=== PATIENT | female | born 1980 | race Hispanic/Latino ===

== ENCOUNTER 2020-10-25 22:17 | Inpatient (IN) | payer OTHER ==
[~2020-10-25] VITALS: Ht 160 cm; Wt 103.2 kg
[2020-10-25] MEDS ORDERED: ALBUTEROL INHALER 90MCG/INH IH ONE (22:33)
[2020-10-25] MEDS ORDERED: ACETAMINOPHEN-CODEINE 300/30MG TAB ONE (22:34)
[2020-10-25 22:41] LABS: BASOPHILS % (AUTO) 0.2 % (0.0-5.0); EOSINOPHILS % (AUTO) 0.3 % (0.0-8.0); HEMATOCRIT 39.2 % (36-48); LYMPHOCYTES % (AUTO) 14.3 % (21.0-51.0); MEAN CORPUSCULAR HEMOGLOBIN 27.6 pg (27.0-33.0); MEAN CORPUSCULAR HGB CONC 32.4 g/dL (32.0-36.0); MEAN CORPUSCULAR VOLUME 85.2 fL (79-99); MONOCYTES % (AUTO) 4.5 % (3.0-13.0); NEUTROPHILS % (AUTO) 80.5 % (40.0-77.0); PLATELET COUNT (AUTO) 134 K/uL (130-400); RED CELL DISTRIBUTION WIDTH 14.6 % (11.0-15.5); WHITE BLOOD COUNT (AUTO) 6.5 K/uL (4.8-10.8)
[2020-10-25 22:53] LABS: RAPID GROUP A STREP NEGATIVE (NEGATIVE)
[2020-10-25 22:54] LABS: CREATININE 1.1 mg/dL (0.5-1.5); POTASSIUM 3.7 mmol/L (3.5-5.1)
[2020-10-25 22:55] LABS: PROTHROMBIN TIME 10.9 SEC (9.6-11.6)
[2020-10-25 22:55] LABS: ABG BASE EXCESS 0.3 mmol/L (-2.0-3.0); ABG HCO3 24.7 mmol/L (21.0-28.0); ABG OXYGEN SATURATION 92.4 % (95.0-99.0); ABG PCO2 39 mmHg (32-45)
[2020-10-25 22:56] LABS: PARTIAL THROMBOPLASTIN TIME 27.9 SEC (26.3-35.5)
[2020-10-25 23:01] LABS: B-TYPE NATRIURETIC PEPTIDE 6 pg/mL (0-100)
[2020-10-25 23:05] LABS: ALBUMIN 3.5 g/dL (3.5-5.0); BILIRUBIN,TOTAL 0.6 mg/dL (0.2-1.0); TOTAL PROTEIN, SERUM 7.5 g/dL (6.0-8.3)
[2020-10-25] MEDS ORDERED: CEFTRIAXONE SODIUM 1 GM ONE (23:23)
[2020-10-25] MEDS ORDERED: AZITHROMYCIN 250 MG TABLET PO ONE (23:24)
[2020-10-26] MEDS ORDERED: ERGOCALCIFEROL (VITAMIN D2) 50,000 UNIT CAPSULE PO ONE
[2020-10-26] MEDS ORDERED: ENOXAPARIN SODIUM 120 MG/0.8ML SQ ONE (00:04)
[2020-10-26] MEDS ORDERED: DEXAMETHASONE SOD PHOSPHATE 4 MG/ML 1ML VIAL IVP SCH (00:15)
[2020-10-26] MEDS ORDERED: LACTATED RINGERS 1000ML 1,000 ML IV SCH (00:15)
[2020-10-26] MEDS ORDERED: ERGOCALCIFEROL (VITAMIN D2) 50,000 UNIT CAPSULE ONE (00:41)
[2020-10-26] MEDS ORDERED: FLUT220HFA IH (03:18)
[2020-10-26] MEDS ORDERED: IBUP-2784 PO (03:19)
[2020-10-26 04:06] LABS: EOSINOPHILS % (AUTO) 0.2 % (0.0-8.0); HEMATOCRIT 35.6 % (36-48); LYMPHOCYTES % (AUTO) 18.9 % (21.0-51.0); MEAN CORPUSCULAR HEMOGLOBIN 27.3 pg (27.0-33.0); MEAN CORPUSCULAR HGB CONC 31.7 g/dL (32.0-36.0); MONOCYTES % (AUTO) 3.7 % (3.0-13.0); PLATELET COUNT (AUTO) 124 K/uL (130-400); RED BLOOD CELL COUNT(AUTO) 4.14 MIL/uL (4.00-5.50); RED CELL DISTRIBUTION WIDTH 14.8 % (11.0-15.5); WHITE BLOOD COUNT (AUTO) 4.9 K/uL (4.8-10.8)
[2020-10-26 04:25] LABS: BILIRUBIN,TOTAL 0.5 mg/dL (0.2-1.0); CRP QUANTITATIVE 57.6 mg/L (0.00-9.0); POTASSIUM 3.6 mmol/L (3.5-5.1); TOTAL PROTEIN, SERUM 6.6 g/dL (6.0-8.3)
[2020-10-26 04:26] VITALS: BP 132/63
[2020-10-26] MEDS ORDERED: LACTATED RINGERS 1000ML 1,000 ML IV ONE (06:14)
[2020-10-26] MEDS: GUAIFENESIN-DM 200/20 MG 10 ML PO PRN ×2 (06:16→21:17)
[2020-10-26 08:36] VITALS: BP 104/65
[2020-10-26] MEDS: ZINC SULFATE 220 CAPSULE PO SCH (08:55)
[2020-10-26] MEDS: ASCORBIC ACID 500 MG TAB PO SCH (08:55)
[2020-10-26] MEDS: ACETYLCYSTEINE 600 MG CAPSULE PO SCH ×2 (08:55→21:16)
[2020-10-26] MEDS: ONDANSETRON HCL 4 MG/2 ML VIAL IVP PRN (12:39)
[2020-10-26 13:15] VITALS: BP 100/61
[2020-10-26 16:00] VITALS: BP 117/69
[2020-10-26] MEDS ORDERED: PHARMACY COMMUNICATION**REMDESIVIR ORDER MISC SCH (18:30)
[2020-10-26] MEDS: PANTOPRAZOLE SODIUM 40 MG TABLET.DR PO SCH (18:54)
[2020-10-26 19:00] VITALS: BP 106/51
[2020-10-26] MEDS ORDERED: COMPOUND IV REFRIGERATED 1 EACH IVSOLN MISC PRN (19:00)
[2020-10-26] MEDS ORDERED: REMDESIVIR (EUA) 520 200 MG in SODIUM CHLORIDE 0.9% 250 ML IV SCH (20:00)
[2020-10-26 20:47] LABS: CREATININE 1.1 mg/dL (0.5-1.5); POTASSIUM 3.7 mmol/L (3.5-5.1)
[2020-10-26 20:51] LABS: ALBUMIN 3.1 g/dL (3.5-5.0); BILIRUBIN,DIRECT 0.1 mg/dL (0.0-0.3); BILIRUBIN,TOTAL 0.5 mg/dL (0.2-1.0); TOTAL PROTEIN, SERUM 6.4 g/dL (6.0-8.3)
[2020-10-26] MEDS: AZITHROMYCIN 500MG+NS 250ML 250 ML IV SCH (21:00)
[2020-10-26] MEDS: CEFTRIAXONE SODIUM 1 GM IV SCH (21:17)
[2020-10-26] MEDS: METHYLPREDNISOLONE SOD SUCC 125MG/2ML VIAL IVP SCH (21:17)
[2020-10-26] MEDS: ENOXAPARIN SODIUM 40 MG/0.4 ML SYRINGE SQ SCH (21:22)
[2020-10-27] VITALS: BP 105/56
[2020-10-27 04:00] VITALS: BP 109/64
[2020-10-27 05:54] LABS: HEMATOCRIT 37.8 % (36-48); LYMPHOCYTES % (AUTO) 10.7 % (21.0-51.0); MEAN CORPUSCULAR HEMOGLOBIN 27.7 pg (27.0-33.0); MEAN CORPUSCULAR HGB CONC 32.3 g/dL (32.0-36.0); MEAN CORPUSCULAR VOLUME 85.7 fL (79-99); MONOCYTES % (AUTO) 1.1 % (3.0-13.0); NEUTROPHILS % (AUTO) 87.9 % (40.0-77.0); PLATELET COUNT (AUTO) 128 K/uL (130-400); RED BLOOD CELL COUNT(AUTO) 4.41 MIL/uL (4.00-5.50); RED CELL DISTRIBUTION WIDTH 14.6 % (11.0-15.5); WHITE BLOOD COUNT (AUTO) 3.6 K/uL (4.8-10.8)
[2020-10-27 06:09] LABS: BILIRUBIN,TOTAL 0.4 mg/dL (0.2-1.0); MAGNESIUM 2.5 mg/dL (1.80-2.40); PHOSPHORUS 2.4 mg/dL (2.5-4.9); POTASSIUM 4.5 mmol/L (3.5-5.1); TOTAL PROTEIN, SERUM 7.2 g/dL (6.0-8.3)
[2020-10-27] MEDS: REMDESIVIR LABS MISC SCH (07:11)
[2020-10-27] MEDS: ONDANSETRON HCL 4 MG/2 ML VIAL IVP PRN ×3 (07:57→22:32)
[2020-10-27] MEDS: METHYLPREDNISOLONE SOD SUCC 125MG/2ML VIAL IVP SCH ×2 (08:02→21:47)
[2020-10-27] MEDS: ENOXAPARIN SODIUM 40 MG/0.4 ML SYRINGE SQ SCH (08:03)
[2020-10-27] MEDS: ZINC SULFATE 220 CAPSULE PO SCH (08:06)
[2020-10-27] MEDS: PANTOPRAZOLE SODIUM 40 MG TABLET.DR PO SCH (08:06)
[2020-10-27] MEDS: ACETYLCYSTEINE 600 MG CAPSULE PO SCH ×2 (08:06→21:54)
[2020-10-27] MEDS: ASCORBIC ACID 500 MG TAB PO SCH (08:06)
[2020-10-27 08:26] VITALS: BP 110/68
[2020-10-27 08:40] LABS: ABG BASE EXCESS -0.3 mmol/L (-2.0-3.0); ABG HCO3 24.4 mmol/L (21.0-28.0); ABG OXYGEN SATURATION 93.4 % (95.0-99.0); ABG PCO2 40 mmHg (32-45)
[2020-10-27 12:58] VITALS: BP 138/87
[2020-10-27] MEDS: ALBUTEROL SULFATE 0.083% 2.5 MG/3 ML INH IH SCH ×3 (14:14→21:54)
[2020-10-27] MEDS: FLUTICASONE/VILANTEROL 1 EACH AER.POW.BA IH SCH (14:20)
[2020-10-27] MEDS: GUAIFENESIN-DM 200/20 MG 10 ML PO PRN ×2 (14:43→21:47)
[2020-10-27 16:14] VITALS: BP 129/80
[2020-10-27 18:53] VITALS: BP 114/63
[2020-10-27] MEDS: REMDESIVIR (EUA) 520 100 MG in SODIUM CHLORIDE 0.9% 250 ML IV SCH (20:10)
[2020-10-27] MEDS: AZITHROMYCIN 500MG+NS 250ML 250 ML IV SCH (21:45)
[2020-10-27] MEDS: CEFTRIAXONE SODIUM 1 GM IV SCH (21:47)
[2020-10-27] MEDS ORDERED: ACETAMINOPHEN 325 MG TAB PO PRN (22:15)
[2020-10-27] MEDS: ACETAMINOPHEN 325 MG TAB PO PRN (22:29)
[2020-10-28 00:15] VITALS: BP 115/78
[2020-10-28] MEDS: ALBUTEROL SULFATE 0.083% 2.5 MG/3 ML INH IH SCH ×5 (02:00→17:04)
[2020-10-28 04:15] VITALS: BP 125/71
[2020-10-28 04:30] LABS: BASOPHILS % (AUTO) 0.1 % (0.0-5.0); HEMATOCRIT 36.5 % (36-48); LYMPHOCYTES % (AUTO) 8.9 % (21.0-51.0); MEAN CORPUSCULAR HEMOGLOBIN 28.1 pg (27.0-33.0); MEAN CORPUSCULAR HGB CONC 32.6 g/dL (32.0-36.0); MEAN CORPUSCULAR VOLUME 86.3 fL (79-99); MONOCYTES % (AUTO) 2.3 % (3.0-13.0); NEUTROPHILS % (AUTO) 86.3 % (40.0-77.0); PLATELET COUNT (AUTO) 147 K/uL (130-400); RED BLOOD CELL COUNT(AUTO) 4.23 MIL/uL (4.00-5.50); RED CELL DISTRIBUTION WIDTH 14.6 % (11.0-15.5); WHITE BLOOD COUNT (AUTO) 7.4 K/uL (4.8-10.8)
[2020-10-28 04:56] LABS: BILIRUBIN,TOTAL 0.4 mg/dL (0.2-1.0); CREATININE 0.9 mg/dL (0.5-1.5); CRP QUANTITATIVE 37.7 mg/L (0.00-9.0); POTASSIUM 4.4 mmol/L (3.5-5.1); TOTAL PROTEIN, SERUM 7.4 g/dL (6.0-8.3)
[2020-10-28 08:19] VITALS: BP 124/74
[2020-10-28] MEDS: ASCORBIC ACID 500 MG TAB PO SCH (08:56)
[2020-10-28] MEDS: ZINC SULFATE 220 CAPSULE PO SCH (08:56)
[2020-10-28] MEDS: ACETYLCYSTEINE 600 MG CAPSULE PO SCH ×2 (08:56→20:47)
[2020-10-28] MEDS: PANTOPRAZOLE SODIUM 40 MG TABLET.DR PO SCH (08:56)
[2020-10-28] MEDS: ENOXAPARIN SODIUM 40 MG/0.4 ML SYRINGE SQ SCH (08:57)
[2020-10-28] MEDS: METHYLPREDNISOLONE SOD SUCC 125MG/2ML VIAL IVP SCH ×3 (08:57→23:22)
[2020-10-28] MEDS: FLUTICASONE/VILANTEROL 1 EACH AER.POW.BA IH SCH (08:58)
[2020-10-28] MEDS: ONDANSETRON HCL 4 MG/2 ML VIAL IVP PRN (11:21)
[2020-10-28 11:36] VITALS: BP 114/72
[2020-10-28] MEDS: REMDESIVIR LABS MISC SCH (12:07)
[2020-10-28 16:02] VITALS: BP 117/74
[2020-10-28] MEDS: GUAIFENESIN-DM 200/20 MG 10 ML PO PRN (18:31)
[2020-10-28 20:00] VITALS: BP 119/62
[2020-10-28] MEDS: CEFTRIAXONE SODIUM 1 GM IV SCH (20:43)
[2020-10-28] MEDS: AZITHROMYCIN 500MG+NS 250ML 250 ML IV SCH (20:45)
[2020-10-28] MEDS: ACETAMINOPHEN 325 MG TAB PO PRN (20:46)
[2020-10-28] MEDS: REMDESIVIR (EUA) 520 100 MG in SODIUM CHLORIDE 0.9% 250 ML IV SCH (23:20)
[2020-10-29] VITALS (7 sets, daily range): BP systolic 117–148; BP diastolic 63–83
[2020-10-29] MEDS: ALBUTEROL SULFATE 0.083% 2.5 MG/3 ML INH IH SCH ×7 (02:00→22:00)
[2020-10-29] MEDS: METHYLPREDNISOLONE SOD SUCC 125MG/2ML VIAL IVP SCH ×2 (05:56→09:00)
[2020-10-29 06:17] LABS: BASOPHILS % (AUTO) 0.2 % (0.0-5.0); HEMATOCRIT 37.4 % (36-48); LYMPHOCYTES % (AUTO) 7.8 % (21.0-51.0); MEAN CORPUSCULAR HEMOGLOBIN 27.5 pg (27.0-33.0); MEAN CORPUSCULAR HGB CONC 31.6 g/dL (32.0-36.0); MEAN CORPUSCULAR VOLUME 87.2 fL (79-99); MONOCYTES % (AUTO) 1.8 % (3.0-13.0); NEUTROPHILS % (AUTO) 88.8 % (40.0-77.0); PLATELET COUNT (AUTO) 157 K/uL (130-400); RED BLOOD CELL COUNT(AUTO) 4.29 MIL/uL (4.00-5.50); RED CELL DISTRIBUTION WIDTH 14.5 % (11.0-15.5); WHITE BLOOD COUNT (AUTO) 9.6 K/uL (4.8-10.8)
[2020-10-29 06:27] LABS: ALBUMIN 2.9 g/dL (3.5-5.0); BILIRUBIN,TOTAL 0.3 mg/dL (0.2-1.0); CREATININE 0.9 mg/dL (0.5-1.5); CRP QUANTITATIVE 12.8 mg/L (0.00-9.0); POTASSIUM 4.5 mmol/L (3.5-5.1); TOTAL PROTEIN, SERUM 6.5 g/dL (6.0-8.3)
[2020-10-29] MEDS ORDERED: METHYLPREDNISOLONE SOD SUCC 125MG/2ML VIAL IVP SCH (08:30)
[2020-10-29 08:45] LABS: HEMOGLOBIN A1C 6.1 % (4.0-6.0)
[2020-10-29] MEDS: PANTOPRAZOLE SODIUM 40 MG TABLET.DR PO SCH (09:06)
[2020-10-29] MEDS: ASCORBIC ACID 500 MG TAB PO SCH (09:06)
[2020-10-29] MEDS: ZINC SULFATE 220 CAPSULE PO SCH (09:06)
[2020-10-29] MEDS: ENOXAPARIN SODIUM 40 MG/0.4 ML SYRINGE SQ SCH (09:07)
[2020-10-29] MEDS: REMDESIVIR LABS MISC SCH (09:08)
[2020-10-29] MEDS: ACETAMINOPHEN 325 MG TAB PO PRN ×2 (09:09→13:33)
[2020-10-29] MEDS: ACETYLCYSTEINE 600 MG CAPSULE PO SCH ×2 (09:10→20:18)
[2020-10-29] MEDS: FLUTICASONE/VILANTEROL 1 EACH AER.POW.BA IH SCH (09:10)
[2020-10-29] MEDS: METHYLPREDNISOLONE SOD SUCC 40MG/ML 1ML IVP SCH (17:01)
[2020-10-29] MEDS ORDERED: SODIUM CHLORIDE 0.9% 100 ML IV ONE (20:10)
[2020-10-29] MEDS: REMDESIVIR (EUA) 520 100 MG in SODIUM CHLORIDE 0.9% 250 ML IV SCH (20:17)
[2020-10-29] MEDS: AZITHROMYCIN 500MG+NS 250ML 250 ML IV SCH (20:18)
[2020-10-29] MEDS: CEFTRIAXONE SODIUM 1 GM IV SCH (20:18)
[2020-10-29 21:54] LABS: APPEARANCE,URINE CLOUDY (CLEAR); BILIRUBIN,URINE NEGATIVE (NEGATIVE); GLUCOSE, URINE (UA) 500 mg/dL (NEGATIVE); KETONES,URINE 5 mg/dL (NEGATIVE); LEUKOCYTE ESTERASE ,URINE NEGATIVE (NEGATIVE); NITRATE,URINE NEGATIVE (NEGATIVE); OCCULT BLOOD,URINE LARGE (NEGATIVE); PH,URINE 6.5 (5.0-8.0); PROTEIN,URINE NEGATIVE (NEGATIVE); UROBILINOGEN,URINE 0.2 mg/dL (0.2-1.0)
[2020-10-29 21:55] LABS: COLOR,URINE ORANGE (YELLOW)
[2020-10-29 22:15] LABS: BACTERIA,URINE Rare /HPF (None Seen); RBC,URINE >100 /HPF (0-1); WBC,URINE 0-1 /HPF (0-1)
[2020-10-29 22:16] LABS: SQUAMOUS EPITHELIAL CELL,UR None Seen /HPF (0-2)
[2020-10-30] MEDS: METHYLPREDNISOLONE SOD SUCC 40MG/ML 1ML IVP SCH ×3 (00:46→17:00)
[2020-10-30] MEDS: ALBUTEROL SULFATE 0.083% 2.5 MG/3 ML INH IH SCH ×6 (02:23→22:00)
[2020-10-30 04:10] VITALS: BP 118/82
[2020-10-30] MEDS: GUAIFENESIN-DM 200/20 MG 10 ML PO PRN ×2 (05:44→19:52)
[2020-10-30] MEDS: LACTULOSE 20 GM/30 ML UDCUP PO PRN (05:44)
[2020-10-30 05:49] LABS: BASOPHILS % (AUTO) 0.4 % (0.0-5.0); EOSINOPHILS % (AUTO) 0.1 % (0.0-8.0); HEMATOCRIT 36.3 % (36-48); LYMPHOCYTES % (AUTO) 8.8 % (21.0-51.0); MEAN CORPUSCULAR HGB CONC 33.1 g/dL (32.0-36.0); MEAN CORPUSCULAR VOLUME 84.8 fL (79-99); MONOCYTES % (AUTO) 4.3 % (3.0-13.0); NEUTROPHILS % (AUTO) 81.7 % (40.0-77.0); PLATELET COUNT (AUTO) 147 K/uL (130-400); RED BLOOD CELL COUNT(AUTO) 4.28 MIL/uL (4.00-5.50); WHITE BLOOD COUNT (AUTO) 10.1 K/uL (4.8-10.8)
[2020-10-30] MEDS: REMDESIVIR LABS MISC SCH (06:00)
[2020-10-30] MEDS ORDERED: IOHEXOL 350 MG/ML 100ML INFUS..BTL IV ONE (06:39)
[2020-10-30 06:40] LABS: ALBUMIN 2.9 g/dL (3.5-5.0); BILIRUBIN,DIRECT 0.1 mg/dL (0.0-0.3); BILIRUBIN,TOTAL 0.3 mg/dL (0.2-1.0); CREATININE 0.9 mg/dL (0.5-1.5); TOTAL PROTEIN, SERUM 6.9 g/dL (6.0-8.3)
[2020-10-30 06:52] LABS: CREATININE 0.9 mg/dL (0.5-1.5); CRP QUANTITATIVE 6.7 mg/L (0.00-9.0); POTASSIUM 4.2 mmol/L (3.5-5.1)
[2020-10-30 08:12] VITALS: BP 140/80
[2020-10-30] MEDS: PANTOPRAZOLE SODIUM 40 MG TABLET.DR PO SCH (08:40)
[2020-10-30] MEDS: ACETYLCYSTEINE 600 MG CAPSULE PO SCH ×2 (08:40→19:52)
[2020-10-30] MEDS: ZINC SULFATE 220 CAPSULE PO SCH (08:40)
[2020-10-30] MEDS: ASCORBIC ACID 500 MG TAB PO SCH (08:40)
[2020-10-30] MEDS: FLUTICASONE/VILANTEROL 1 EACH AER.POW.BA IH SCH (08:43)
[2020-10-30 12:23] VITALS: BP 118/75
[2020-10-30 16:16] VITALS: BP 121/68
[2020-10-30] MEDS: AZITHROMYCIN 500MG+NS 250ML 250 ML IV SCH (19:52)
[2020-10-30] MEDS: REMDESIVIR (EUA) 520 100 MG in SODIUM CHLORIDE 0.9% 250 ML IV SCH (19:52)
[2020-10-30] MEDS: CEFTRIAXONE SODIUM 1 GM IV SCH (19:53)
[2020-10-30 20:16] VITALS: BP 131/74
[2020-10-30 23:56] VITALS: BP 129/73
[2020-10-31] MEDS: METHYLPREDNISOLONE SOD SUCC 40MG/ML 1ML IVP SCH ×3 (00:30→15:39)
[2020-10-31] MEDS: ALBUTEROL SULFATE 0.083% 2.5 MG/3 ML INH IH SCH ×6 (02:05→21:39)
[2020-10-31 04:16] VITALS: BP 144/76
[2020-10-31 05:04] LABS: BASOPHILS % (AUTO) 0.6 % (0.0-5.0); HEMATOCRIT 36.4 % (36-48); LYMPHOCYTES % (AUTO) 10.6 % (21.0-51.0); MEAN CORPUSCULAR HGB CONC 32.4 g/dL (32.0-36.0); MEAN CORPUSCULAR VOLUME 83.3 fL (79-99); MONOCYTES % (AUTO) 4.8 % (3.0-13.0); NEUTROPHILS % (AUTO) 75.7 % (40.0-77.0); NUCLEATED RED BLOOD CELLS 0.4 % (0.0-0.19); PLATELET COUNT (AUTO) 131 K/uL (130-400); RED BLOOD CELL COUNT(AUTO) 4.37 MIL/uL (4.00-5.50); RED CELL DISTRIBUTION WIDTH 13.8 % (11.0-15.5); WHITE BLOOD COUNT (AUTO) 9.4 K/uL (4.8-10.8)
[2020-10-31 05:30] LABS: CARBON DIOXIDE 26 mmol/L (21-32); CHLORIDE 104 mmol/L (101-111); CREATININE 0.9 mg/dL (0.5-1.5); GLOMERULAR FILTR. RATE CALC 73 mL/min (>60); GLUCOSE,RANDOM 166 mg/dL (70-105); LACTATE DEHYDROGENASE 260 U/L (81-234); POTASSIUM 4.3 mmol/L (3.5-5.1); SODIUM SERUM 138 mmol/L (136-145); UREA NITROGEN, BLOOD 19 mg/dL (7-18)
[2020-10-31] MEDS: GUAIFENESIN-DM 200/20 MG 10 ML PO PRN (05:41)
[2020-10-31] MEDS: LACTULOSE 20 GM/30 ML UDCUP PO PRN (05:41)
[2020-10-31] MEDS: REMDESIVIR LABS MISC SCH (06:00)
[2020-10-31 06:04] LABS: CRP QUANTITATIVE < 2.00 mg/L (0.00-9.0)
[2020-10-31 08:00] VITALS: BP 132/72
[2020-10-31] MEDS: ACETYLCYSTEINE 600 MG CAPSULE PO SCH ×2 (10:08→21:38)
[2020-10-31] MEDS: ASCORBIC ACID 500 MG TAB PO SCH (10:08)
[2020-10-31] MEDS: ZINC SULFATE 220 CAPSULE PO SCH (10:08)
[2020-10-31] MEDS: PANTOPRAZOLE SODIUM 40 MG TABLET.DR PO SCH (10:08)
[2020-10-31] MEDS: FLUTICASONE/VILANTEROL 1 EACH AER.POW.BA IH SCH (10:09)
[2020-10-31] MEDS ORDERED: FLUT1AER IH (11:02)
[2020-10-31] MEDS ORDERED: PRED10TA3 PO (11:02)
[2020-10-31] MEDS ORDERED: ALBU8.5H8 IH (11:02)
[2020-10-31 14:04] VITALS: BP 142/87
[2020-10-31] MEDS ORDERED: SODIUM CHLORIDE 0.9% 500ML 500 ML IV ONE (21:07)
[2020-10-31 21:10] VITALS: BP 131/77
[2020-10-31] MEDS: CEFTRIAXONE SODIUM 1 GM IV SCH (21:38)
[2020-10-31] MEDS: AZITHROMYCIN 500MG+NS 250ML 250 ML IV SCH (21:38)
[2020-11-01] MEDS: METHYLPREDNISOLONE SOD SUCC 40MG/ML 1ML IVP SCH ×2 (00:30→08:04)
[2020-11-01 00:34] VITALS: BP 132/79
[2020-11-01 04:48] VITALS: BP 153/82
[2020-11-01 04:56] LABS: BASOPHILS % (AUTO) 0.8 % (0.0-5.0); HEMATOCRIT 38.8 % (36-48); LYMPHOCYTES % (AUTO) 10.3 % (21.0-51.0); MEAN CORPUSCULAR HEMOGLOBIN 27.4 pg (27.0-33.0); MEAN CORPUSCULAR HGB CONC 32.7 g/dL (32.0-36.0); MEAN CORPUSCULAR VOLUME 83.6 fL (79-99); MONOCYTES % (AUTO) 6.6 % (3.0-13.0); NEUTROPHILS % (AUTO) 72.6 % (40.0-77.0); NUCLEATED RED BLOOD CELLS 0.3 % (0.0-0.19); PLATELET COUNT (AUTO) 134 K/uL (130-400); RED BLOOD CELL COUNT(AUTO) 4.64 MIL/uL (4.00-5.50); WHITE BLOOD COUNT (AUTO) 11.8 K/uL (4.8-10.8)
[2020-11-01 05:23] LABS: CREATININE 0.9 mg/dL (0.5-1.5); POTASSIUM 4.2 mmol/L (3.5-5.1)
[2020-11-01] MEDS: ZINC SULFATE 220 CAPSULE PO SCH (08:04)
[2020-11-01] MEDS: ACETYLCYSTEINE 600 MG CAPSULE PO SCH (08:04)
[2020-11-01] MEDS: PANTOPRAZOLE SODIUM 40 MG TABLET.DR PO SCH (08:04)
[2020-11-01] MEDS: ASCORBIC ACID 500 MG TAB PO SCH (08:04)
[2020-11-01] MEDS: FLUTICASONE/VILANTEROL 1 EACH AER.POW.BA IH SCH (08:05)
[2020-11-01 08:15] VITALS: BP 123/68
== END 2020-11-01 16:04 | disposition home or self-care (01) | DRG 177 ==
LOC: EDH 22:17 → EDHIP 22:18 → OBSVTOIN 22:18 → INTOOBSV 22:18 → 4AH 10-26 02:42 → 2AH 10-27 18:32
PROVIDERS: ADMIT Family Medicine; ATTEND Family Medicine
PROC: XW033E5 Introduction of Remdesivir Anti-infective into Peripheral Vein, Percutaneous Approach, New Technology Group 5 (ICD-10-PCS; principal; 2020-10-26)
PROC: XW13325 Transfusion of Convalescent Plasma (Nonautologous) into Peripheral Vein, Percutaneous Approach, New Technology Group 5 (ICD-10-PCS; 2020-10-27)
DX: U07.1 COVID-19 (principal); J96.01 Acute respiratory failure with hypoxia; J12.82 Pneumonia due to coronavirus disease 2019; Z68.41 Body mass index [BMI] 40.0-44.9, adult; J45.901 Unspecified asthma with (acute) exacerbation; J44.0 Chronic obstructive pulmonary disease with (acute) lower respiratory infection; K92.2 Gastrointestinal hemorrhage, unspecified; R31.9 Hematuria, unspecified; E66.01 Morbid (severe) obesity due to excess calories; N85.2 Hypertrophy of uterus; N92.0 Excessive and frequent menstruation with regular cycle; K76.0 Fatty (change of) liver, not elsewhere classified; R16.1 Splenomegaly, not elsewhere classified; R79.89 Other specified abnormal findings of blood chemistry; Z87.442 Personal history of urinary calculi
CPT/HCPCS: 36415; 36430; 36600; 71045; 71250; 74176; 74177; 80048; 80053; 80076; 81001; 82550; 82565; 82728; 82803; 83036; 83605; 83615; 83735; 83880; 84100; 84145; 84484; 84702; 85025; 85378; 85610; 85730; 86140; 86850; 86900; 86901; 86927; 87040; 87426; 87804; 87880; 93005; 94760; 99291; G0378; J0456; J0696; J1650; J2405; J2920; J2930; J7040; J7050; J7120; Q9967

== ENCOUNTER 2020-12-04 15:08 | Emergency (ER) | payer OTHER ==
[~2020-12-04 15:08] MED LIST: ALBU8.5H8 IH; FLUT1AER IH; PRED10TA3 PO
[2020-12-04 17:15] LABS: RAPID GROUP A STREP NEGATIVE (NEGATIVE)
== END 2020-12-04 17:28 | disposition home or self-care (01) ==
LOC: EDH 15:08
DX: J30.9 Allergic rhinitis, unspecified (principal); E11.9 Type 2 diabetes mellitus without complications; Z88.8 Allergy status to other drugs, medicaments and biological substances; Z87.442 Personal history of urinary calculi
CPT/HCPCS: 36415; 71045; 81025; 84702; 87804; 87880

== ENCOUNTER 2020-12-11 18:08 | Emergency (ER) | payer SELFPAY ==
[2020-12-11 19:05] LABS: BASOPHILS % (AUTO) 0.6 % (0.0-5.0); EOSINOPHILS % (AUTO) 3.6 % (0.0-8.0); HEMATOCRIT 38.8 % (36-48); MEAN CORPUSCULAR HEMOGLOBIN 28.4 pg (27.0-33.0); MEAN CORPUSCULAR VOLUME 86.2 fL (79-99); MONOCYTES % (AUTO) 5.3 % (3.0-13.0); NEUTROPHILS % (AUTO) 68.9 % (40.0-77.0); PLATELET COUNT (AUTO) 167 K/uL (130-400); RED CELL DISTRIBUTION WIDTH 15.9 % (11.0-15.5); WHITE BLOOD COUNT (AUTO) 9.1 K/uL (4.8-10.8)
[2020-12-11 19:13] LABS: CREATININE 1.8 mg/dL (0.5-1.5); POTASSIUM 4.6 mmol/L (3.5-5.1)
[2020-12-11 19:17] LABS: ALBUMIN 3.7 g/dL (3.5-5.0); BILIRUBIN,TOTAL 0.6 mg/dL (0.2-1.0); TOTAL PROTEIN, SERUM 7.4 g/dL (6.0-8.3)
[2020-12-11] MEDS ORDERED: ONDANSETRON 4MG INJ ONE (19:19)
[2020-12-11] MEDS ORDERED: MORPHINE 4 MG SYG ONE (19:19)
[2020-12-11] MEDS ORDERED: IOHEXOL-350 75 ML VIAL IV ONE (19:19)
[2020-12-11] MEDS ORDERED: 0.9%NACL 1000ML 1,000 ML IV ONE (19:20)
[2020-12-11 19:38] LABS: APPEARANCE,URINE Clear (CLEAR); BILIRUBIN,URINE Negative (NEGATIVE); COLOR,URINE Yellow (YELLOW); GLUCOSE, URINE (UA) Negative (NEGATIVE); KETONES,URINE Negative (NEGATIVE); LEUKOCYTE ESTERASE ,URINE Negative (NEGATIVE); NITRATE,URINE Negative (NEGATIVE); OCCULT BLOOD,URINE Negative (NEGATIVE); PH,URINE 5.5 (5.0-8.0); PROTEIN,URINE Negative (NEGATIVE); UROBILINOGEN,URINE 0.2 mg/dL (0.2-1.0)
[2020-12-11 19:41] LABS: HCG,QUAL RESULT NEGATIVE (NEGATIVE)
[2020-12-11] MEDS ORDERED: MAG/ALUM/SIMETH 30 ML UDCUP ONE (20:40)
[2020-12-11] MEDS ORDERED: LIDOCAINE HCL 2% VISCOUS 15 ML UDCUP ONE (20:40)
[2020-12-11] MEDS ORDERED: KETOROLAC 30MG VIAL (30MG/ML) ONE (22:13)
== END 2020-12-11 23:30 | disposition home or self-care (01) ==
LOC: EDH 18:08
DX: R10.84 Generalized abdominal pain (principal); J45.909 Unspecified asthma, uncomplicated; E11.9 Type 2 diabetes mellitus without complications; Z88.6 Allergy status to analgesic agent; Z87.442 Personal history of urinary calculi
CPT/HCPCS: 36415; 74176; 76705; 76856; 80053; 81003; 81025; 83690; 84702; 85025; 96361; 96374; 96375; 99285; J1885; J2270; J2405; J7030; Q9967

== ENCOUNTER → 2022-06-04 | Outpatient (CLI) | payer MEDICAID | END | disposition home or self-care (01) | LOC: RAH 12:17 | PROVIDERS: ATTEND Physical Medicine & Rehabilitation | DX: M47.22 Other spondylosis with radiculopathy, cervical region (principal); M48.02 Spinal stenosis, cervical region; M47.816 Spondylosis without myelopathy or radiculopathy, lumbar region; M48.061 Spinal stenosis, lumbar region without neurogenic claudication; Z88.8 Allergy status to other drugs, medicaments and biological substances | CPT/HCPCS: 72141; 72148 ==

== ENCOUNTER 2022-07-31 19:01 | Emergency (ER) | payer MEDICAID ==
[~2022-07-31] VITALS: Ht 160 cm; Wt 133.8 kg
[2022-07-31 20:00] LABS: BASOPHILS % (AUTO) 0.4 % (0.0-5.0); EOSINOPHILS % (AUTO) 2.2 % (0.0-8.0); LYMPHOCYTES % (AUTO) 26.9 % (21.0-51.0); MEAN CORPUSCULAR HEMOGLOBIN 28.7 pg (27.0-33.0); MEAN CORPUSCULAR HGB CONC 33.1 g/dL (32.0-36.0); MEAN CORPUSCULAR VOLUME 86.7 fL (79-99); MONOCYTES % (AUTO) 6.5 % (3.0-13.0); NEUTROPHILS % (AUTO) 63.7 % (40.0-77.0); PLATELET COUNT (AUTO) 180 K/uL (130-400); RED BLOOD CELL COUNT(AUTO) 4.15 MIL/uL (4.00-5.50); RED CELL DISTRIBUTION WIDTH 15.2 % (11.0-15.5); WHITE BLOOD COUNT (AUTO) 7.7 K/uL (4.8-10.8)
[2022-07-31 20:12] LABS: CREATININE 1.1 mg/dL (0.5-1.5); POTASSIUM 4.3 mmol/L (3.5-5.1)
[2022-07-31 20:16] LABS: ALBUMIN 3.2 g/dL (3.5-5.0); TOTAL PROTEIN, SERUM 6.8 g/dL (6.0-8.3)
[2022-07-31 20:19] LABS: APPEARANCE,URINE CLEAR (CLEAR); BILIRUBIN,URINE NEGATIVE (NEGATIVE); COLOR,URINE LIGHT-YELLOW (YELLOW); GLUCOSE, URINE (UA) NEGATIVE (NEGATIVE); KETONES,URINE NEGATIVE (NEGATIVE); LEUKOCYTE ESTERASE ,URINE NEGATIVE Leu/uL (NEGATIVE); NITRATE,URINE NEGATIVE (NEGATIVE); OCCULT BLOOD,URINE LARGE (NEGATIVE); PH,URINE 5.5 (5.0-8.0); PROTEIN,URINE NEGATIVE (NEGATIVE); UROBILINOGEN,URINE 0.2 mg/dL (0.2-1.0)
[2022-07-31 20:32] LABS: BACTERIA,URINE Rare /HPF (None Seen); RBC,URINE None Seen /HPF (0-1); SQUAMOUS EPITHELIAL CELL,UR 0-2 /HPF (0-2); WBC,URINE 0-1 /HPF (0-1)
[2022-07-31 20:40] LABS: INR 0.93 (0.85-1.15); PROTHROMBIN TIME 10.2 SEC (9.6-11.6)
[2022-07-31 20:42] LABS: PARTIAL THROMBOPLASTIN TIME 24.9 SEC (26.3-35.5)
[2022-07-31] MEDS ORDERED: 0.9%NACL 1000ML 2,000 ML IV ONE (21:30)
[2022-07-31] MEDS ORDERED: CYCL-309 PO (23:23)
[2022-07-31] MEDS ORDERED: GABA300C PO (23:23)
[2022-07-31 23:26] VITALS: BP 121/69
[2022-07-31] MEDS ORDERED: ACETAMINOPHEN 500 MG TABLET PO ONE (23:30)
[2022-08-01] MEDS ORDERED: [UNRECOGNIZED DRUG - OTHER] (00:14)
== END 2022-08-01 00:24 | disposition home or self-care (01) ==
LOC: EDH 19:01
DX: D25.9 Leiomyoma of uterus, unspecified (principal); N93.8 Other specified abnormal uterine and vaginal bleeding; E11.9 Type 2 diabetes mellitus without complications; I10 Essential (primary) hypertension; G47.30 Sleep apnea, unspecified; Z87.442 Personal history of urinary calculi; Z79.899 Other long term (current) drug therapy; Z88.6 Allergy status to analgesic agent
CPT/HCPCS: 99284; 96360; 80053; 84703; 85025; 85610; 85730; 81001; 36415; 73502; J7030

== ENCOUNTER 2024-11-11 20:00 | Emergency (ER) | payer MEDICARE ==
[~2024-11-11] VITALS: Ht 160 cm; Wt 129.3 kg
[~2024-11-11 20:00] MED LIST changes: +CYCL-309 PO; +GABA-529 PO; +OMEP20CA12 PO; -PRED10TA3 PO
--- NOTE | 2024-11-11 20:26 | NUR ---
KNEE IMMOBILIZER IN PLACE
--- NOTE | 2024-11-11 20:32 | NUR ---
PATIENT REPORTS PAIN TO L BREAST AFTER CHILD JUMPED ON HER A FEW DAYS AGO
[2024-11-11 20:59] LABS: BASOPHILS # (AUTO) 0.03 K/uL (0.00-0.20); BASOPHILS % (AUTO) 0.3 % (0.0-5.0); EOSINOPHILS # (AUTO) 0.35 K/uL (0.00-0.70); EOSINOPHILS % (AUTO) 3.8 % (0.0-8.0); HEMATOCRIT 39.1 % (36-48); LYMPHOCYTES # (AUTO) 1.6 K/uL (1.0-4.8); LYMPHOCYTES % (AUTO) 16.8 % (21.0-51.0); MEAN CORPUSCULAR HEMOGLOBIN 28.5 pg (27.0-33.0); MEAN CORPUSCULAR HGB CONC 33.2 g/dL (32.0-36.0); MEAN CORPUSCULAR VOLUME 85.7 fL (79-99); MONOCYTES # (AUTO) 0.5 K/uL (0.1-1.0); MONOCYTES % (AUTO) 5.4 % (3.0-13.0); NEUTROPHILS # (AUTO) 6.7 K/uL (1.8-7.7); NEUTROPHILS % (AUTO) 72.6 % (40.0-77.0); PLATELET COUNT (AUTO) 176 K/uL (130-400); RED BLOOD CELL COUNT(AUTO) 4.56 MIL/uL (4.00-5.50); RED CELL DISTRIBUTION WIDTH 14.8 % (11.0-15.5); WHITE BLOOD COUNT (AUTO) 9.2 K/uL (4.8-10.8)
[2024-11-11 21:13] LABS: CREATININE 0.9 mg/dL (0.5-1.0); POTASSIUM 4.6 mmol/L (3.5-5.1)
[2024-11-11] MEDS: 0.9%NACL 1000ML 1,000 ML IV ONE (21:46)
[2024-11-11] MEDS: INSULIN humuLIN R 100 UNIT/ML 3ML IV ONE (21:54)
[2024-11-11] MEDS ORDERED: SULF1TAB42 PO (22:40)
--- NOTE | 2024-11-11 22:40 | ERN ---
ED Note History of Present Illness Stated Complaint: PAIN IN BREAST Chief Complaint: Breast Problem Time Seen by MD: 20:12 Time Seen by Midlevel: 20:12 Dictation: The patient is a 44-year-old female with a history of diabetes, asthma who presents to the emergency department with complaints of left breast pain onset two weeks ago. Patient reports that her daughter accidentally hit her and then she started having bleeding and discharge from her nipple. Patient denies any fevers. Allergies: Coded Allergies: No Known Drug Allergies (Verified Allergy, Unknown, 10/26/20) ibuprofen (Unverified Allergy, Unknown, 12/04/20) Home Meds Active Scripts Sulfamethoxazole/Trimethoprim (Bactrim Ds Tablet) 800 Mg-160 Mg Tablet, 1 TAB PO BID for 7 Days, #14 TAB 0 Refills Prov:MENDEL BORDEN CLINICAL AUDIOLOGIST 11/11/24 Cyclobenzaprine HCl (Cyclobenzaprine HCl) 10 Mg Tablet, 10 MG PO TIDP PRN for PAIN, #30 TAB Prov:RENÉ VOGEL MD 07/31/22 Albuterol Sulfate (Proair Hfa) 8.5 Gm Hfa.aer.ad, 8.5 GM IH Q6HPRN for 30 Days, #1 0 Refills Prov:LIBBY FERGUSON MD 10/31/20 Fluticasone/Vilanterol (Breo Ellipta 100-25 Mcg INH) 1 Each Aer.pow.ba, 1 EACH IH DAILY for 30 Days, #1 0 Refills Prov:LIBBY FERGUSON MD 10/31/20 Reported Medications Omeprazole (Omeprazole) 20 Mg Capsule.dr, 20 MG PO BID PRN for INDIGESTION, CAP 08/30/22 Gabapentin (Gabapentin) 100 Mg Capsule, 100 MG PO TID, CAP 08/30/22 Past Medical History Past Medical History: Diabetes-Type II, Hypertension Additional Past Medical Hx: DJD, SLEEP APNEA, UTERINE FIBROIDS Surgical History: Other Surgical History Other: KIDNEY STONE REMOVAL Family History: DM, HTN Social History: Negative, Lives with family RN Note Reviewed/Agreed w/PFSH: Yes Review of System Dictation Constitutional: Negative for fever,chills, and weight loss Eyes: Negative for injury, pain,redness, and discharge ENT: Negative for injury,pain or swelling Cardiovascular: Negative for chest pain, palpitations, and edema Respiratory: Negative for shortness of breath, cough, and wheezing, Abdomen/GI: Negative for abdominal pain, nausea, vomiting, diarrhea, and constipation Back: Negative for injury and pain : Negative for injury, bleeding and discharge MS/Extremity: Negative for injury and deformity Skin: Negative for rash, and discoloration positive for redness, left breast Neuro: Negative for headache, weakness, numbness, tingling, and seizure Psych: Negative for suicide ideation, homicidal ideation, and hallucinations Initial Vital Sign VS Vital Signs Date Time Temp Pulse Resp B/P (MAP) Pulse Ox O2 Delivery O2 Flow Rate FiO2 11/11/24 20:01 97.9 97 20 159/102 98 Room Air Physical Exam Dictation Vital Signs reviewed General Appearance: Alert, oriented x 3, no acute distress, well developed, nourished. Head and Face: non-traumatic. Eyes: PERRL, pink conjunctivas, eyelid no trauma, anterior chamber with arcus senilis. Ears: Pinnas intact and no signs of trauma or erythema ear canals clear and no discharge TM no erythema Nose: No discharge, no bleeding. Oropharynx: Mouth normal, tongue pink. pharynx clear,no erythema, tonsils no exudates, no abscesses noted, mucous membrane moist Neck: Supple, non-tender, no thyromegaly, no masses, no JVD, no bruits Breast left breast with erythema, warmth to touch, no drainage noticed, tenderness, small induration near nipple. Chest:No tenderness, no crepitus, no paradoxical movement, no retractions Lungs:Clear, well-ventilated, symmetric, no rales, no wheezing, no rhonchi, no stridor, good breath sounds bilaterally, Heart: Regular rate, regular rhythm, no murmur, no gallops Vascular: no peripheral edema, Abdomen: Soft, positive bowel sounds, nondistended, no guarding, nontender, no rebound, no masses no hepatomegaly, no splenomegaly, no Nesbitt's sign, no hernias. Rectal: Deferred Genital: Deferred Neurological: Normal speech, motor function intact, sensory function intact Musculoskeletal: Neck nontender, full range of motion, back nontender, full range of motion, Extremities: nontender, full range of motion Skin: Color pink, dry, no turgor, no rash, no lacerations, no abrasions, no contusions. Lymphatic: Deferred Results (Laboratory/Radiology) Laboratory/Radiology Laboratory Tests Test 11/11/24 20:45 11/11/24 22:30 White Blood Count 9.2 K/uL (4.8-10.8) Red Blood Count 4.56 MIL/uL (4.00-5.50) Hemoglobin 13.0 g/dL (12.0-16.0) Hematocrit 39.1 % (36-48) Mean Corpuscular Volume 85.7 fL (79-99) Mean Corpuscular Hemoglobin 28.5 pg (27.0-33.0) Mean Corpuscular Hemoglobin Concent 33.2 g/dL (32.0-36.0) Red Cell Distribution Width 14.8 % (11.0-15.5) Platelet Count 176 K/uL (130-400) Mean Platelet Volume 11.6 fL (7.5-10.5) H Immature Granulocyte % (Auto) 1.1 % (0-1) H Neutrophils (%) (Auto) 72.6 % (40.0-77.0) Lymphocytes (%) (Auto) 16.8 % (21.0-51.0) L Monocytes (%) (Auto) 5.4 % (3.0-13.0) Eosinophils (%) (Auto) 3.8 % (0.0-8.0) Basophils (%) (Auto) 0.3 % (0.0-5.0) Neutrophils # (Auto) 6.7 K/uL (1.8-7.7) Lymphocytes # (Auto) 1.6 K/uL (1.0-4.8) Monocytes # (Auto) 0.5 K/uL (0.1-1.0) Eosinophils # (Auto) 0.35 K/uL (0.00-0.70) Basophils # (Auto) 0.03 K/uL (0.00-0.20) Absolute Immature Granulocyte (auto 0.10 K/uL (0-1) Nucleated Red Blood Cells 0.0 % (0.0-0.19) Sodium Level 131 mmol/L (136-145) L Potassium Level 4.6 mmol/L (3.5-5.1) Chloride Level 95 mmol/L (101-111) L Carbon Dioxide Level 34 mmol/L (21-32) H Blood Urea Nitrogen 8 mg/dL (7-18) Creatinine 0.9 mg/dL (0.5-1.0) Glomerular Filtration Rate Calc 80 mL/min (>90) Random Glucose 478 mg/dL (70-105) *H Total Calcium 9.2 mg/dL (8.5-10.1) Serum Test, Qualitative NEGATIVE (NEGATIVE) Whole Blood Glucose 302 MG/DL (70-110) H Labs Reviewed?: Yes ED Course ED Course Orders Procedure Category Date Status Time Cbc With Differential LAB 11/11/24 Complete 20:23 Basic Metabolic Panel LAB 11/11/24 Complete 20:23 Testing, LAB 11/11/24 Complete Serum Hcg 20:23 0.9%Nacl 1000ml (Ns PHA 11/11/24 Complete 1000ml) 21:30 Insulin Regular, PHA 11/11/24 Complete Human 3ml (Humulin R 21:30 Bedside Glucose CPOE 11/11/24 Transmitted Fingerstick 22:28 Current Medications Medications (Trade) Dose Ordered Sig/Vera Route PRN Reason Start Time Stop Time Status Last Admin Dose Admin Insulin Human Regular (humuLIN R 100 UNIT/ML 3ML) 10 unit ONCE ONCE IV 11/11/24 21:30 11/11/24 21:32 DC 11/11/24 21:54 Sodium Chloride 1,000 ml @ 0 mls/hr ONCE ONCE IV 11/11/24 21:30 11/11/24 21:32 DC 11/11/24 21:46 Vital Signs Date Time Temp Pulse Resp B/P (MAP) Pulse Ox O2 Delivery O2 Flow Rate FiO2 11/11/24 20:01 97.9 97 20 159/102 98 Room Air Medical Decision Making MDM The patient is a 44-year-old female with a history of diabetes, asthma who p resents to the emergency department with complaints of left breast pain onset two weeks ago. Patient reports that her daughter accidentally hit her and then she started having bleeding and discharge from her nipple. Patient denies any fevers. CBC showed no leukocytosis, no anemia, chemistry showed elevated blood glucose, no DKA, mild hypernatremia, hypochloremia. Patient was giving a L of fluids and insulin and blood glucose is trending down. Spoke to patient about unable to perform ultrasound because she needs to get a mammogram to rule out any breast cancer. Patient instructed to follow up with her primary doctor to get a ref erral for a mammogram. Patient has agreed to follow up with PCP. Differential diagnosis: Cellulitis, abscess, electrolyte imbalance, sepsis Need for hospitalization: Patient does not meet criteria for hospitalization. There are no social concerns with this patient. DX & DISP Disposition: Discharge Departure Impression: Primary Impression: Left breast mass Additional Impressions: Breast pain, left, Uncontrolled diabetes mellitus with hyperglycemia Condition: Stable Scripts Sulfamethoxazole/Trimethoprim (Bactrim Ds Tablet) 800 Mg-160 Mg Tablet 1 TAB PO BID for 7 Days, #14 TAB 0 Refills Prov: MICHIMENDEL JEFFRIES 11/11/24 Additional Instructions: Please follow up with PCP. It is important that you get a referral for a mammogram to rule out any breast cancer. If symptoms worsen please return to ER. FOLLOW-UP WITH PRIMARY CARE PROVIDER IN 1 TO 2 DAYS. TAKE MEDICATIONS DIRECTED HERE IN THE EMERGENCY ROOM. OKAY TO CONTINUE HOME MEDICATIONS UNLESS OTHERWISE DISCUSSED DURING YOUR VISIT IN THE EMERGENCY ROOM TODAY. RETURN TO YOUR NEAREST EMERGENCY ROOM IF SYMPTOMS WORSEN OR IF THERE IS NO IMPROVEMENT. CALL 911 IF YOU NEED IMMEDIATE ASSISTANCE. TAKE TYLENOL OR MOTRIN [id number] NEEDED AND IF NO CONTRAINDICATIONS ARE PRESENT. INCREASE ORAL HYDRATION. A WOUND CULTURE OR URINE CULTURE WAS ORDERED HERE IN THE EMERGENCY ROOM DEPARTMENT PLEASE FOLLOW-UP WITH PRIMARY CARE PROVIDER AND ADVISE THEM TO GET REPEAT PORTS FROM OUR FACILITY. IF YOU HAD ANY IVETTE WRAP/SPLINTS THAT WERE APPLIED HERE, PLEASE DO NOT REMOVE THEM UNTIL YOU SEE YOUR PRIMARY CARE OR SPECIALTY. Referrals: KATHI DONG MD (PCP) Time of Disposition: 22:38 I have reviewed the case, and I agree with, Diagnosis and Plan MENDEL BORDEN Nov 11, 2024 22:40
[2024-11-11 22:52] VITALS: BP 147/88; PULSE 92; RESP 18; TEMP 98.5; O2SAT 99
== END 2024-11-11 22:53 | disposition home or self-care (01) ==
LOC: EDH 20:00
DX: N63.20 Unspecified lump in the left breast, unspecified quadrant (principal); N64.4 Mastodynia; E11.65 Type 2 diabetes mellitus with hyperglycemia; J45.909 Unspecified asthma, uncomplicated; I10 Essential (primary) hypertension; M19.90 Unspecified osteoarthritis, unspecified site; Z88.6 Allergy status to analgesic agent; Z79.899 Other long term (current) drug therapy; Z79.51 Long term (current) use of inhaled steroids; Z87.42 Personal history of other diseases of the female genital tract; Z87.442 Personal history of urinary calculi
CPT/HCPCS: 99283; 96374; 80048; 84703; 85025; 82948; 36415; J1815; J7030

== ENCOUNTER 2025-01-31 17:19 | Emergency (ER) | payer MEDICARE, MEDICAID ==
[~2025-01-31] VITALS: Ht 160 cm; Wt 130.2 kg
[~2025-01-31 17:19] MED LIST changes: +SULF1TAB42 PO
--- NOTE | 2025-01-31 18:08 | EKG ---
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
[2025-01-31 18:10] LABS: BASOPHILS # (AUTO) 0.04 K/uL (0.00-0.20); BASOPHILS % (AUTO) 0.3 % (0.0-5.0); EOSINOPHILS # (AUTO) 0.28 K/uL (0.00-0.70); EOSINOPHILS % (AUTO) 2.3 % (0.0-8.0); HEMATOCRIT 34.3 % (36-48); LYMPHOCYTES # (AUTO) 1.3 K/uL (1.0-4.8); LYMPHOCYTES % (AUTO) 10.6 % (21.0-51.0); MEAN CORPUSCULAR HEMOGLOBIN 27.5 pg (27.0-33.0); MEAN CORPUSCULAR HGB CONC 32.4 g/dL (32.0-36.0); MEAN CORPUSCULAR VOLUME 85.1 fL (79-99); MONOCYTES # (AUTO) 0.5 K/uL (0.1-1.0); MONOCYTES % (AUTO) 4.5 % (3.0-13.0); NEUTROPHILS # (AUTO) 9.8 K/uL (1.8-7.7); NEUTROPHILS % (AUTO) 81.5 % (40.0-77.0); PLATELET COUNT (AUTO) 216 K/uL (130-400); RED BLOOD CELL COUNT(AUTO) 4.03 MIL/uL (4.00-5.50); RED CELL DISTRIBUTION WIDTH 15.4 % (11.0-15.5); WHITE BLOOD COUNT (AUTO) 12.1 K/uL (4.8-10.8)
[2025-01-31] MEDS: PANTOPrazole 40 MG/VIAL IVP ONE (18:13)
[2025-01-31] MEDS: ondanSETRON 4MG INJ IVP ONE (18:14)
[2025-01-31] MEDS: 0.9%NACL 1000ML 1,000 ML IV ONE (18:14)
[2025-01-31] MEDS: morPHINE 4 MG SYG IVP ONE ×2 (18:14→21:39)
[2025-01-31 18:36] LABS: CREATININE 0.9 mg/dL (0.5-1.0); POTASSIUM 4.4 mmol/L (3.5-5.1)
[2025-01-31 18:40] LABS: ALBUMIN 2.9 g/dL (3.5-5.0); BILIRUBIN,DIRECT 0.2 mg/dL (0.0-0.3); BILIRUBIN,TOTAL 0.7 mg/dL (0.2-1.0); MAGNESIUM 1.8 mg/dL (1.80-2.40); TOTAL PROTEIN, SERUM 6.8 g/dL (6.0-8.3)
--- NOTE | 2025-01-31 19:10 | HMCIMG ---
CT HEAD/BRAIN W/O CONTRAST HISTORY: Seizures COMPARISON: None TECHNIQUE: Multiple sequential axial images of the head were obtained from the base of the skull through vertex. Patient was not given contrast through intravenous route. FINDINGS: The ventricles and extraventricular CSF spaces are nondilated for patient's age. There is no midline shift, mass effect or herniation. No acute intracranial bleed is seen. Visualized portion of the paranasal sinuses are grossly within normal limits. IMPRESSION: 1. No acute intracranial bleed is seen. CT was performed with one or more following dose reduction techniques: automated exposure control, adjustment of the mA and kv according to patient's size, or use of a iterative reconstruction technique.
--- NOTE | 2025-01-31 19:27 | HMCIMG ---
CT ABDOMEN/PELVIS W/O CONTRAST HISTORY: Abdominal pain COMPARISON: 12/29/2021 TECHNIQUE: Multiple sequential axial images of the abdomen and pelvis were obtained from the dome of the diaphragm through symphysis pubis. Patient was not given contrast through intravenous route. Oral contrast was not given. FINDINGS: No pleural effusion is seen bilaterally. There is no evidence of parenchymal disease or pulmonary nodule of the visualized lower lungs. Degenerative changes of the thoracolumbar spine are present. The heart is not enlarged. The liver, spleen, adrenal glands and pancreas are unremarkable. There is no evidence of hydronephrosis bilaterally. No evidence of renal stone is seen. Fecal material is seen in the colon. There are normal size retroperitoneal and mesenteric lymph nodes. No ascites is seen. The uterus is markedly enlarged increased in size from previous study measuring 21 x 19 cm consistent with fibroid uterus. There is left ovarian cystic mass measuring 10 x 9 cm suggestive of cystic neoplasm of ovary. This was not seen on previous study. Appendix is not well seen limiting evaluation. Pelvic sidewalls are symmetric bilaterally. Bladder is moderately distended. IMPRESSION: 1. The uterus is markedly enlarged increased in size from previous study measuring 21 x 19 cm consistent with fibroid uterus. There is left ovarian cystic mass measuring 10 x 9 cm suggestive of cystic neoplasm of ovary. This was not seen on previous study. CT was performed with one or more following dose reduction techniques: automated exposure control, adjustment of the mA and kv according to patient's size, or use of a iterative reconstruction technique.
--- NOTE | 2025-01-31 19:40 | HMCIMG ---
CHEST 1VW HISTORY: Seizures COMPARISON: 12/04/2020 FINDINGS: A frontal projection of the chest was obtained. Mild bilateral pulmonary infiltrates are seen may be related to mild pulmonary vascular congestion with possible superimposed pneumonitis. The heart is enlarged. Degenerative changes are seen. No evidence of aortic calcification is seen. IMPRESSION: 1. Mild bilateral pulmonary infiltrates are seen may be related to mild pulmonary vascular congestion with possible superimposed pneumonitis.
--- NOTE | 2025-01-31 20:26 | NUR ---
US AT BEDSIDE AT THIS TIME. PT VOICED AFTER CT SCAN FELT HER UMBILICAL HERNIA WAS WORST AND FELT LIKE IT "POPPED OUT MORE". PT STATED SHE HAS HX OF MULTIPLE MASSES/TUMORS THAT ARE INOPERABLE HERE THAT SHE WOULD NEED TO GO TO OR [facility] [place]. PT IS AWAKE AND ALERT X4 NO DISTRESS NOTED AT THIS TIME. PT VOICED PAIN TO ABD SUBSIDED AFTER MEDICATIONS.
--- NOTE | 2025-01-31 21:49 | HMCIMG ---
US PELVIC NON-OB COMP HISTORY: pelvic pain COMPARISON: CT scan previously same day. FINDINGS: There is an enlarged 18.6 x 21.5 and 1.2 lobular nodular uterus. The endometrium is poorly defined but appears measuring least 2.7 cm. The ovaries are not identified. Note is made of an umbilical hernia which may represent protrusion of the uterine mass. IMPRESSION: Large likely pelvic neoplasm involving the uterus as identified on the CT scan are severely leiomyomatous uterus which seems less likely.
--- NOTE | 2025-02-01 00:17 | ERN ---
ED Note History of Present Illness Stated Complaint: SEIZURE Chief Complaint: Seizure Time Seen by MD: 17:26 Time Seen by Midlevel: 17:26 Dictation: The patient is a 44-year-old obese female with a history of diabetes, uterine fibroids, who presents to the emergency department with complaints of a seizure onset prior to arrival. Patient reports that she was laying down when she had the seizure activity. Seizure was witnessed by a piece has been who reports that patient was shaking in then became unresponsive for 20 minutes. Patient also reports that she has been having lower abdominal pain. Reports history of uterine masses and she was seen by multiple OBGYN who states that she isn't able to have surgery due to high-risk. Allergies: Coded Allergies: No Known Drug Allergies (Verified Allergy, Unknown, 10/26/20) ibuprofen (Unverified Allergy, Unknown, 01/31/25) Home Meds Active Scripts Sulfamethoxazole/Trimethoprim (Bactrim Ds Tablet) 800 Mg-160 Mg Tablet, 1 TAB PO BID for 7 Days, #14 TAB 0 Refills Prov:MENDEL BORDEN CHANNEL REBUILDER 11/11/24 Cyclobenzaprine HCl (Cyclobenzaprine HCl) 10 Mg Tablet, 10 MG PO TIDP PRN for PAIN, #30 TAB Prov:RENÉ VOGEL MD 07/31/22 Albuterol Sulfate (Proair Hfa) 8.5 Gm Hfa.aer.ad, 8.5 GM IH Q6HPRN for 30 Days, #1 0 Refills Prov:LIBBY FERGUSON MD 10/31/20 Fluticasone/Vilanterol (Breo Ellipta 100-25 Mcg INH) 1 Each Aer.pow.ba, 1 EACH IH DAILY for 30 Days, #1 0 Refills Prov:LIBBY FERGUSON MD 10/31/20 Reported Medications Omeprazole (Omeprazole) 20 Mg Capsule.dr, 20 MG PO BID PRN for INDIGESTION, CAP 08/30/22 Gabapentin (Gabapentin) 100 Mg Capsule, 100 MG PO TID, CAP 08/30/22 Past Medical History Past Medical History: Diabetes-Type II Additional Past Medical Hx: DJD, SLEEP APNEA, UTERINE FIBROIDS Surgical History: Other Surgical History Other: KIDNEY STONES Family History: DM, HTN Social History: Negative, Lives with family RN Note Reviewed/Agreed w/PFSH: Yes Review of System Dictation Constitutional: Negative for fever,chills, and weight loss Eyes: Negative for injury, pain,redness, and discharge ENT: Negative for injury,pain or swelling Cardiovascular: Negative for chest pain, palpitations, and edema Respiratory: Negative for shortness of breath, cough, and wheezing, Abdomen/GI: Negative for nausea, vomiting, diarrhea, and constipation positive for abdominal Back: Negative for injury and pain : Negative for injury, bleeding and discharge MS/Extremity: Negative for injury and deformity Skin: Negative for rash, and discoloration Neuro: Negative for headache, weakness, numbness, tingling, positive for seizure Psych: Negative for suicide ideation, homicidal ideation, and hallucinations Initial Vital Sign VS Vital Signs Date Time Temp Pulse Resp B/P (MAP) Pulse Ox O2 Delivery O2 Flow Rate FiO2 01/31/25 17:20 98.1 106 20 116/81 95 0 01/31/25 18:03 Room Air* 21 Physical Exam Dictation Vital Signs reviewed General Appearance: Alert, oriented x 3, mildly distress, well developed, nourished. Head and Face: non-traumatic. Eyes: PERRL, pink conjunctivas, eyelid no trauma, anterior chamber with arcus senilis. Ears: Pinnas intact and no signs of trauma or erythema ear canals clear and no discharge TM no erythema Nose: No discharge, no bleeding. Oropharynx: Mouth normal, tongue pink. pharynx clear,no erythema, tonsils no exudates, no abscesses noted, mucous membrane moist Neck: Supple, non-tender, no thyromegaly, no masses, no JVD, no bruits Breast:Deferred Chest:No tenderness, no crepitus, no paradoxical movement, no retractions Lungs:Clear, well-ventilated, symmetric, no rales, no wheezing, no rhonchi, no stridor, good breath sounds bilaterally Heart: Regular rate, regular rhythm, no murmur, no gallops Vascular: no peripheral edema, Abdomen: Soft, positive bowel sounds, distended, no guarding, Generalized tenderness, no rebound, no masses no hepatomegaly, no splenomegaly, no Nesbitt's sign, no hernias. Rectal: Deferred Genital: Deferred Neurological: Normal speech, motor function intact, sensory function intact Musculoskeletal: Neck nontender, full range of motion, back nontender, full range of motion, Extremities: nontender, full range of motion Skin: Color pink, dry, no turgor, no rash, no lacerations, no abrasions, no contusions. Lymphatic: Deferred Results (Laboratory/Radiology) Laboratory/Radiology Laboratory Tests Test 01/31/25 18:00 01/31/25 18:46 White Blood Count 12.1 K/uL (4.8-10.8) H Red Blood Count 4.03 MIL/uL (4.00-5.50) Hemoglobin 11.1 g/dL (12.0-16.0) L Hematocrit 34.3 % (36-48) L Mean Corpuscular Volume 85.1 fL (79-99) Mean Corpuscular Hemoglobin 27.5 pg (27.0-33.0) Mean Corpuscular Hemoglobin Concent 32.4 g/dL (32.0-36.0) Red Cell Distribution Width 15.4 % (11.0-15.5) Platelet Count 216 K/uL (130-400) Mean Platelet Volume 11.1 fL (7.5-10.5) H Immature Granulocyte % (Auto) 0.8 % (0-1) Neutrophils (%) (Auto) 81.5 % (40.0-77.0) H Lymphocytes (%) (Auto) 10.6 % (21.0-51.0) L Monocytes (%) (Auto) 4.5 % (3.0-13.0) Eosinophils (%) (Auto) 2.3 % (0.0-8.0) Basophils (%) (Auto) 0.3 % (0.0-5.0) Neutrophils # (Auto) 9.8 K/uL (1.8-7.7) H Lymphocytes # (Auto) 1.3 K/uL (1.0-4.8) Monocytes # (Auto) 0.5 K/uL (0.1-1.0) Eosinophils # (Auto) 0.28 K/uL (0.00-0.70) Basophils # (Auto) 0.04 K/uL (0.00-0.20) Absolute Immature Granulocyte (auto 0.10 K/uL (0-1) Nucleated Red Blood Cells 0.0 % (0.0-0.19) Sodium Level 137 mmol/L (136-145) Potassium Level 4.4 mmol/L (3.5-5.1) Chloride Level 101 mmol/L (101-111) Carbon Dioxide Level 26 mmol/L (21-32) Blood Urea Nitrogen 10 mg/dL (7-18) Creatinine 0.9 mg/dL (0.5-1.0) Glomerular Filtration Rate Calc 80 mL/min (>90) Random Glucose 265 mg/dL (70-105) H Total Calcium 8.6 mg/dL (8.5-10.1) Magnesium Level 1.80 mg/dL (1.80-2.40) Total Bilirubin 0.7 mg/dL (0.2-1.0) Direct Bilirubin 0.2 mg/dL (0.0-0.3) Aspartate Amino Transf (AST/SGOT) 11 U/L (10-37) Alanine Aminotransferase (ALT/SGPT) 12 U/L (12-78) Alkaline Phosphatase 112 U/L (50-136) Total Creatine Kinase 14 U/L (21-232) #L Troponin I High Sensitivity < 4 ng/L (4-50) L Total Protein 6.8 g/dL (6.0-8.3) Albumin 2.9 g/dL (3.5-5.0) L Lipase 28 U/L (16-77) Ammonia < 10 umol/L (11-32) L Serum Alcohol < 3 mg/dL (0-10) REASON: seizure ORDERING PHYSICIAN: MENDEL BORDEN CHANNEL REBUILDER PROCEDURE: CXR1VW - CHEST 1VW CHEST 1VW HISTORY: Seizures COMPARISON: 12/04/2020 FINDINGS: A frontal projection of the chest was obtained. Mild bilateral pulmonary infiltrates are seen may be related to mild pulmonary vascular congestion with possible superimposed pneumonitis. The heart is enlarged. Degenerative changes are seen. No evidence of aortic calcification is seen. IMPRESSION: 1. Mild bilateral pulmonary infiltrates are seen may be related to mild pulmonary vascular congestion with possible superimposed pneumonitis. REASON: seizure ORDERING PHYSICIAN: MENDEL BORDEN CHANNEL REBUILDER PROCEDURE: HEAD WO - CT HEAD/BRAIN W/O CONTRAST CT HEAD/BRAIN W/O CONTRAST HISTORY: Seizures COMPARISON: None TECHNIQUE: Multiple sequential axial images of the head were obtained from the base of the skull through vertex. Patient was not given contrast through intravenous route. FINDINGS: The ventricles and extraventricular CSF spaces are nondilated for patient's age. There is no midline shift, mass effect or herniation. No acute intracranial bleed is seen. Visualized portion of the paranasal sinuses are grossly within normal limits. IMPRESSION: 1. No acute intracranial bleed is seen. CT was performed with one or more following dose reduction techniques: automated exposure control, adjustment of the mA and kv according to patient's size, or use of a iterative reconstruction technique. REASON: ABD PAIN ORDERING PHYSICIAN: MENDEL BORDEN CHANNEL REBUILDER PROCEDURE: ABD PEL WO - CT ABDOMEN/PELVIS W/O CONTRAST CT ABDOMEN/PELVIS W/O CONTRAST HISTORY: Abdominal pain COMPARISON: 12/29/2021 TECHNIQUE: Multiple sequential axial images of the abdomen and pelvis were obtained from the dome of the diaphragm through symphysis pubis. Patient was not given contrast through intravenous route. Oral contrast was not given. FINDINGS: No pleural effusion is seen bilaterally. There is no evidence of parenchymal disease or pulmonary nodule of the visualized lower lungs. Degenerative changes of the thoracolumbar spine are present. The heart is not enlarged. The liver, spleen, adrenal glands and pancreas are unremarkable. There is no evidence of hydronephrosis bilaterally. No evidence of renal stone is seen. Fecal material is seen in the colon. There are normal size retroperitoneal and mesenteric lymph nodes. No ascites is seen. The uterus is markedly enlarged increased in size from previous study measuring 21 x 19 cm consistent with fibroid uterus. There is left ovarian cystic mass measuring 10 x 9 cm suggestive of cystic neoplasm of ovary. This was not seen on previous study. Appendix is not well seen limiting evaluation. Pelvic sidewalls are symmetric bilaterally. Bladder is moderately distended. IMPRESSION: 1. The uterus is markedly enlarged increased in size from previous study measuring 21 x 19 cm consistent with fibroid uterus. There is left ovarian cystic mass measuring 10 x 9 cm suggestive of cystic neoplasm of ovary. This was not seen on previous study. CT was performed with one or more following dose reduction techniques: automated exposure control, adjustment of the mA and kv according to patient's size, or use of a iterative reconstruction technique. REASON: pelvic pain ORDERING PHYSICIAN: MENDEL BODRENP PROCEDURE: PELVCOMP - US PELVIC NON-OB COMP US PELVIC NON-OB COMP HISTORY: pelvic pain COMPARISON: CT scan previously same day. FINDINGS: There is an enlarged 18.6 x 21.5 and 1.2 lobular nodular uterus. The endometrium is poorly defined but appears measuring least 2.7 cm. The ovaries are not identified. Note is made of an umbilical hernia which may represent protrusion of the uterine mass. IMPRESSION: Large likely pelvic neoplasm involving the uterus as identified on the CT scan are severely leiomyomatous uterus which seems less likely. Labs Reviewed?: Yes EKG: (+) rhythm (Sinus rhythm) EKG Comment: Date:01/31/2025 Time:1805 Ventricular rate:99 ND interval:125 QRS duration:76 QT/QTc:349 EKG interpretation: Sinus rhythm Reviewed by ED Attending no STEMI ED Course ED Course Orders Procedure Category Date Status Time Cbc With Differential LAB 01/31/25 Complete 17:54 Chest 1vw RAD 01/31/25 Resulted 17:54 12 Lead Ekg Tracing- EKG 01/31/25 Complete Technical 17:54 0.9%Nacl 1000ml (Ns PHA 01/31/25 Complete 1000ml) 18:00 Magnesium LAB 01/31/25 Complete 17:54 Creatine Kinase, Total LAB 01/31/25 Complete 17:54 Troponin I High LAB 01/31/25 Complete Sensitivity 17:54 Urinalysis Profile LAB 01/31/25 Logged 17:54 Basic Metabolic Panel LAB 01/31/25 Complete 17:54 Lipase LAB 01/31/25 Complete 17:54 Hepatic Function Panel LAB 01/31/25 Complete 17:54 Drug Screen Urine LAB 01/31/25 Logged 17:54 Ct Head/Brain W/O CT 01/31/25 Resulted Contrast 17:54 Ondansetron 4mg Inj PHA 01/31/25 Complete (Zofran 4mg Inj) 18:00 Pantoprazole 40mg Inj PHA 01/31/25 Complete (Protonix 40mg Inj 18:00 Morphine 4mg Syg PHA 01/31/25 Complete (Morphine 4mg Syg) 18:00 Ammonia LAB 01/31/25 Complete 18:37 Ct Abdomen/Pelvis W/O CT 01/31/25 Resulted Contrast 18:37 Alcohol, Blood LAB 01/31/25 Complete 18:38 Us Pelvic Non-Ob Comp US 01/31/25 Resulted 19:40 Morphine 4mg Syg PHA 01/31/25 Complete (Morphine 4mg Syg) 22:00 Current Medications Medications (Trade) Dose Ordered Sig/Vera Route PRN Reason Start Time Stop Time Status Last Admin Dose Admin Morphine Sulfate (morPHINE 4MG SYG) 4 mg ONCE ONCE IVP 5/27/25 18:00 01/31/25 18:02 DC 01/31/25 18:14 Morphine Sulfate (morPHINE 4MG SYG) 4 mg ONCE ONCE IVP 01/31/25 22:00 01/31/25 22:01 DC 01/31/25 21:39 Ondansetron HCl (zoFRAN 4MG INJ) 4 mg ONCE ONCE IVP 01/31/25 18:00 01/31/25 18:02 DC 01/31/25 18:14 Pantoprazole Sodium (PROTonix 40MG INJ) 40 mg ONCE ONCE IVP 01/31/25 18:00 01/31/25 18:02 DC 01/31/25 18:13 Sodium Chloride 1,000 ml @ 0 mls/hr ONCE ONCE IV 01/31/25 18:00 01/31/25 18:02 DC 01/31/25 18:14 Vital Signs Date Time Temp Pulse Resp B/P (MAP) Pulse Ox O2 Delivery O2 Flow Rate FiO2 02/01/25 00:29 98.1 94 20 132/82 97 Room Air* 0 21 01/31/25 21:43 96 20 131/79 99 Room Air* 0 21 01/31/25 20:01 91 20 130/76 99 Room Air* 0 21 01/31/25 18:03 98.4 108 20 123/77 98 Room Air* 0 21 01/31/25 17:20 98.1 106 20 116/81 95 0 Medical Decision Making MDM MDM: The patient is a 44-year-old obese female with a history of diabetes, uterine fibroids, who presents to the emergency department with complaints of a seizure onset prior to arrival. Patient reports that she was laying down when she had the seizure activity. Seizure was witnessed by a piece has been who reports that patient was shaking in then became unresponsive for 20 minutes. Patient also reports that she has been having lower abdominal pain. Reports history of uterine masses and she was seen by multiple OBGYN who states that she isn't able to have surgery due to high-risk. 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 CT head showed no acute intracranial bleed, abdomen and pelvis revealed uterus markedly enlarged consistent with fibrous uterus. Left ovarian cystic mass measuring 10 x 9 cm suggestive of cystic neoplasm. Tele neuro consulted who recommends EEG and MRI. Patient will be transferred to higher level of care for Neurology consultation and further evaluation and treatment. Differential diagnosis: Electrolyte imbalance, seizures, intracerebral hemorrhage, brain mass Comorbidities: Diabetes, uterine fibroids, uterine masses Tests considered and not ordered secondary to shared decision making include: none Previous outside records reviewed: none Risk of complication and/or morbidity or mortality of patient management: The patient meets criteria for transfer Need for emergency major/minor surgery: No There are no social concerns with this patient. I independently interpreted the tests I ordered (labs, urinalysis, etc.). I discussed the case with the hospitalist for admission. Dr. Frank who accepts transfer. I discussed the case with the following specialists: Dr.Andres Tracy neurology. Historian: pateint. I independently interpreted imaging studies and EKGs that I ordered (US, CT, XR, EKG, etc.). External chart review: none. Medical management and examination interpretation discussions were had by me with other qualified healthcare professionals as indicated for the patient's care. DX & DISP Disposition: Transfer Decision to Admit Date: February 01, 2025 Decision to Admit Time: 01:49 Departure Impression: Primary Impression: New onset seizure Additional Impressions: Uterine malignancy, Fibroid uterus, Uncontrolled diabetes mellitus with hyperglycemia Condition: Stable Referrals: KATHI DONG MD (PCP) I have reviewed the case, and I agree with, Diagnosis and Plan MENDEL BORDEN February 01, 2025 00:17
[2025-02-01 00:29] VITALS: TEMP 98.1
--- NOTE | 2025-02-01 00:30 | CONS ---
CONSULTATION NOTE DATE OF CONSULTATION: 01/31/25 ALLERGIES: Coded Allergies: No Known Drug Allergies (Verified Allergy, Unknown, 10/26/20) ibuprofen (Unverified Allergy, Unknown, 01/31/25) HOME MEDS: Active Scripts Sulfamethoxazole/Trimethoprim (Bactrim Ds Tablet) 800 Mg-160 Mg Tablet, 1 TAB PO BID for 7 Days, #14 TAB 0 Refills Prov:MENDEL BORDEN DETACKER 11/11/24 Cyclobenzaprine HCl (Cyclobenzaprine HCl) 10 Mg Tablet, 10 MG PO TIDP PRN for PAIN, #30 TAB Prov:REÉN VOGEL MD 07/31/22 Albuterol Sulfate (Proair Hfa) 8.5 Gm Hfa.aer.ad, 8.5 GM IH Q6HPRN for 30 Days, #1 0 Refills Prov:LIBBY FERGUSON MD 10/31/20 Fluticasone/Vilanterol (Breo Ellipta 100-25 Mcg INH) 1 Each Aer.pow.ba, 1 EACH IH DAILY for 30 Days, #1 0 Refills Prov:LIBBY FERGUSON MD 10/31/20 Reported Medications Omeprazole (Omeprazole) 20 Mg Capsule.dr, 20 MG PO BID PRN for INDIGESTION, CAP 08/30/22 Gabapentin (Gabapentin) 100 Mg Capsule, 100 MG PO TID, CAP 08/30/22 LABORATORY RESULTS Laboratory Tests 01/31/25 18:00: White Blood Count 12.1, Red Blood Count 4.03, Hemoglobin 11.1, Hematocrit 34.3, Mean Corpuscular Volume 85.1, Mean Corpuscular Hemoglobin 27.5, Mean Corpuscular Hemoglobin Concent 32.4, Red Cell Distribution Width 15.4, Platelet Count 216, Mean Platelet Volume 11.1, Immature Granulocyte % (Auto) 0.8, Neutrophils (%) (Auto) 81.5, Lymphocytes (%) (Auto) 10.6, Monocytes (%) (Auto) 4.5, Eosinophils (%) (Auto) 2.3, Basophils (%) (Auto) 0.3, Neutrophils # (Auto) 9.8, Lymphocytes # (Auto) 1.3, Monocytes # (Auto) 0.5, Eosinophils # (Auto) 0.28, Basophils # (Auto) 0.04, Absolute Immature Granulocyte (auto 0.10, Nucleated Red Blood Cells 0.0, Sodium Level 137, Potassium Level 4.4, Chloride Level 101, Carbon Dioxide Level 26, Blood Urea Nitrogen 10, Creatinine 0.9, Glomerular Filtration Rate Calc 80, Random Glucose 265, Total Calcium 8.6, Magnesium Level 1.80, Total Bilirubin 0.7, Direct Bilirubin 0.2, Aspartate Amino Transf (AST/SGOT) 11, Alanine Aminotransferase (ALT/SGPT) 12, Alkaline Phosphatase 112, Total Creatine Kinase 14, Troponin I High Sensitivity < 4, Total Protein 6.8, Albumin 2.9, Lipase 28 01/31/25 18:46: Ammonia < 10, Serum Alcohol < 3 PLAN [place] Neuro Note # Demographics Consult Type: General Neurology Patient Location: Emergency Room First Name: SHARON Last Name: SRINIVAS Date of : 1980 Age: 44 Gender: Female Facility: [facility] Time of Initial Page (Central Time): 01/31/2025 21:07 Time of Return Call (Central Time): 01/31/2025 21:09 # HPI History: 44 yo F TJ, MDD, DM C section new onset 420 pm witnessed shaking, unresponsive 20 minutes. Abd pain around umbilical cord for week, notes belly button popped out, in pain, Tylenol and went to sleep, then next in EMS. Rapid UE movements, nearly biting mouth, put something in mouth, breathing slow, HR slow, not speaking. Eye closed, didn't move to one side. Resting, not sleeping when it occurred. 20 minutes, constant, didn't stop when he held her hand, same speed the whole time, no response. 5 minutes to wake in EMS. Confused, couldn't recall name. Sons epileptic. No personal hx of seizure No NURSE CLINICAL infections Falls and hit head corner of drawer, no LOC HCT neg. Leobardo notes "it didn't look like a seizure" Stress, kids/ sick When looking left suddenly shaking. Notes hormone is high, unknown name of hormonal. a lot of migraines. 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 Far less likely a seizure, however would obtain EEG/MRI brain, and recommend referral to therapy. # Plan Imaging / diagnostics: (urgency: outpatient): - EEG - MRI brain without Other: - If patient has any neurological deterioration please call me back immediately - seizure precautions - I have discussed my recommendations with the referring provider - neurology referral as outpatient Additional Recommendations: Referral to # Logistics Attestation of consult completion: The patient is located at: [facility]. Facility staff participated in the visit. I performed this telemedicine visit from my offsite office utilizing interactive 2 way audio and visual telecommunication technology. Consent: Verbal consent was unable to be obtained due to patient condition, lack of family presence, or emergent nature of consult. Total time spent in telemedicine encounter: I spent 25 minutes reviewing clinical data and/or imaging, obtaining history, examining the patient, communicating with the onsite care team, and in preparation of this report. # Demographics First Name: SHARON Last Name: SRINIVAS Facility: [facility] Electronically signed at 02/01/2025 00:29 (Central Time) by MD SOHA Colón DAVID H MD February 01, 2025 00:30
[2025-02-01 01:53] VITALS: BP 124/74; PULSE 101; RESP 20; O2SAT 98
--- NOTE | 2025-02-01 02:42 | NUR ---
REPORT CALLED TO [facility]. PT BEING TRANSFERRED FOR NEURO CONSULT. RM [id number]. REPORT GIVEN TO MICH UPTON. PENDING EMS AT THIS TIME FR TRANSFER
--- NOTE | 2025-02-01 03:11 | NUR ---
[facility] R. PT LEFT WITH BELONGINGS AND TRANSFER PAPERWORK/IMAGING DISC.
== END 2025-02-01 03:14 | disposition short-term general hospital (02) ==
LOC: EDH 17:19
DX: R56.9 Unspecified convulsions (principal); C79.82 Secondary malignant neoplasm of genital organs; D25.9 Leiomyoma of uterus, unspecified; E11.65 Type 2 diabetes mellitus with hyperglycemia; Z79.51 Long term (current) use of inhaled steroids; Z79.899 Other long term (current) drug therapy; Z88.6 Allergy status to analgesic agent
CPT/HCPCS: 99285; 82550; 80076; 83735; 84484; 80048; 82140; 83690; 85025; 36415; 71045; 70450; 74176; 76856; 96374; 96361; 96375; 96376; 93005; J2405; J2270 ×2; J2470